=== PATIENT | male | born 1965 | race Caucasian/White ===

== ENCOUNTER 2019-01-11 16:34 | Inpatient (IN) | payer OTHER ==
[2019-01-11 17:34] LABS: ADD MAN DIFF? NO
[2019-01-11] MEDS: SODIUM CHLORIDE 0.9% 1L BAG IV* (17:38)
[2019-01-11] MEDS: PIPER-TAZO 3.375 GM IV (PMX) 100 ML IVPB (17:39)
[2019-01-11 17:42] LABS: BASOPHILS % 0.3 % (0.0-2.0); EOSINOPHILS % 0.1 % (0.0-7.0); HEMATOCRIT 45.5 % (42.0-52.0); HEMOGLOBIN 14.7 g/dl (14.0-18.0); LYMPHOCYTES # 1.3 10^3/ul (0.8-2.9); LYMPHOCYTES % 17.8 % (15.0-51.0); MEAN CORPUSCULAR HEMOGLOBIN 26.7 pg (29.0-33.0); MEAN CORPUSCULAR HGB CONC 32.3 g/dl (32.0-37.0); MEAN CORPUSCULAR VOLUME 82.7 fl (82.0-101.0); MEAN PLATELET VOLUME 10.4 fl (7.4-10.4); MONOCYTE # 0.6 10^3/ul (0.3-0.9); MONOCYTES % 7.7 % (0.0-11.0); NEUTROPHIL # 5.5 10^3/ul (1.6-7.5); NEUTROPHILS % 73.6 % (39.0-77.0); NUCLEATED RED BLOOD CELLS # 0.1 10^3/ul (0.0-0.0); NUCLEATED RED BLOOD CELLS% 0.7 /100WBC (0.0-0.0); PLATELET COUNT 351 10^3/UL (140-415); RED CELL DISTRIBUTION WIDTH 17.8 % (11.5-14.5)
[2019-01-11 17:42] LABS: WHITE BLOOD COUNT 7.5 10^3/ul (4.8-10.8)
[2019-01-11 18:02] LABS: INR 1.37; PT RATIO 1.3
[2019-01-11 18:03] LABS: ALANINE AMINOTRANSFERASE 30 IU/L (13-69); ALBUMIN 2.9 g/dl (3.3-4.9); ALKALINE PHOSPHATASE 190 IU/L (42-121); ANION GAP 12 (5-13); ASPARTATE AMINO TRANSFERASE 31 IU/L (15-46); BILIRUBIN,INDIRECT 0.6 mg/dl (0-1.1); BILIRUBIN,TOTAL 0.6 mg/dl (0.2-1.3); BLOOD UREA NITROGEN 20 mg/dl (7-20); CALCIUM 8.6 mg/dl (8.4-10.2); CARBON DIOXIDE 22 mmol/L (21-31); CHLORIDE 102 mmol/L (97-110); Estimated GFR > 60 mL/min (>60); GLUCOSE 238 mg/dl (70-220); PARTIAL THROMBOPLASTIN TIME 26.2 Sec (23.0-35.0); POTASSIUM 4.4 mmol/L (3.5-5.1); SODIUM 136 mmol/L (135-144); TOTAL PROTEIN 6.1 g/dl (6.1-8.1)
[2019-01-11 18:13] LABS: TROPONIN-I 0.045 ng/ml (0.000-0.120)
[2019-01-11] MEDS: VANCOMYCIN 1 GM (PMX) 250 ML IVPB (18:48)
[2019-01-11] MEDS ORDERED: ACETAMINOPHEN 325 MG TAB PO ×2 (19:00→19:30)
[2019-01-11] MEDS ORDERED: ONDANSETRON 4 MG INJ IV (19:00)
[2019-01-11] MEDS ORDERED: VANCOMYCIN IV PER PHARMACY XX (19:30)
[2019-01-11] MEDS ORDERED: NACL 0.9% 3 ML SYG IV (19:30)
[2019-01-11] MEDS ORDERED: GLUCOSE GEL 15 GRAM TUBE BUCCAL (20:00)
[2019-01-11] MEDS ORDERED: GLUCOSE GEL 15 GRAM TUBE PO ×2 (20:00)
[2019-01-11] MEDS ORDERED: GLUCAGON 1 MG INJ IM (20:00)
[2019-01-11] MEDS ORDERED: DEXTROSE 50% 50 ML SYRINGE IV ×2 (20:00)
[2019-01-11] MEDS: ATORVASTATIN 40 MG TAB PO (21:49)
[2019-01-11] MEDS: INSULIN ASPART [NOVOLOG] 3 ML PEN SC (21:59)
[2019-01-11] MEDS: FUROSEMIDE 40 MG INJ IV (22:08)
[2019-01-11 22:22] LABS: LACTIC ACID 1.9 mmol/L (0.5-2.0)
[2019-01-11 22:59] LABS: ADD UMIC YES; UR ASCORBIC ACID NEGATIVE (NEGATIVE); UR BACTERIA FEW /HPF (NONE SEEN); UR BILIRUBIN (Dip) NEGATIVE (NEGATIVE); UR BLOOD (Dip) NEGATIVE (NEGATIVE); UR CLARITY SLIGHTLY CLOUDY (CLEAR); UR COLOR YELLOW (YELLOW); UR GLUCOSE (Dip) 1+ mg/dL (NEGATIVE); UR KETONES (Dip) NEGATIVE (NEGATIVE); UR LEUKOCYTE ESTERASE (Dip) NEGATIVE Leu/ul (NEGATIVE); UR MUCUS FEW /HPF (NONE SEEN); UR NITRITE (Dip) NEGATIVE (NEGATIVE); UR RBC 1 /HPF (0-5); UR SPECIFIC GRAVITY (Dip) 1.013 (1.003-1.030); UR TOTAL PROTEIN (Dip) 2+ mg/dl (NEGATIVE); UR UROBILINOGEN (Dip) 2+ mg/dL (NEGATIVE); UR WBC 2 /HPF (0-5)
[2019-01-12] MEDS: LABETALOL HCL 20MG INJ IV (00:01)
[2019-01-12] MEDS: VANCOMYCIN HCL 2 GM in SOD CHLORIDE 0.9% 500 ML IVPB (01:22)
[2019-01-12] MEDS: ACCU-CHEK XX ×2 (02:00→23:34)
[2019-01-12] MEDS: PERMETHRIN 1% 59 ML TOP (03:25)
[2019-01-12] MEDS ORDERED: COLLAGENASE 5 GM (UD JAR) TOP (03:45)
[2019-01-12 04:00] LABS: AMPHETAMINE/METHAMPHETAMINE Negative (NEGATIVE); BARBITURATES Negative (NEGATIVE); BENZODIAZEPINES Negative (NEGATIVE); CANNABINOIDS Negative (NEGATIVE); COCAINE Negative (NEGATIVE); OPIATES Negative (NEGATIVE)
[2019-01-12 04:12] LABS: ADD MAN DIFF? NO
[2019-01-12 04:14] LABS: WHITE BLOOD COUNT 7.3 10^3/ul (4.8-10.8)
[2019-01-12 04:14] LABS: BASOPHILS % 0.3 % (0.0-2.0); EOSINOPHILS % 0.6 % (0.0-7.0); HEMATOCRIT 43.5 % (42.0-52.0); HEMOGLOBIN 13.8 g/dl (14.0-18.0); LYMPHOCYTES # 1.7 10^3/ul (0.8-2.9); LYMPHOCYTES % 23.3 % (15.0-51.0); MEAN CORPUSCULAR HEMOGLOBIN 26.6 pg (29.0-33.0); MEAN CORPUSCULAR HGB CONC 31.7 g/dl (32.0-37.0); MEAN CORPUSCULAR VOLUME 83.8 fl (82.0-101.0); MEAN PLATELET VOLUME 10.2 fl (7.4-10.4); MONOCYTE # 0.6 10^3/ul (0.3-0.9); MONOCYTES % 7.6 % (0.0-11.0); NEUTROPHIL # 4.9 10^3/ul (1.6-7.5); NEUTROPHILS % 67.8 % (39.0-77.0); PLATELET COUNT 300 10^3/UL (140-415); RED BLOOD COUNT 5.19 10^6/ul (4.70-6.10); RED CELL DISTRIBUTION WIDTH 16.7 % (11.5-14.5)
[2019-01-12 04:24] LABS: HEMOGLOBIN A1C 10.2 % (0-5.9)
[2019-01-12 04:33] LABS: ALANINE AMINOTRANSFERASE 34 IU/L (13-69); ALBUMIN 2.7 g/dl (3.3-4.9); ALKALINE PHOSPHATASE 170 IU/L (42-121); ANION GAP 8 (5-13); ASPARTATE AMINO TRANSFERASE 28 IU/L (15-46); BILIRUBIN,INDIRECT 0.6 mg/dl (0-1.1); BILIRUBIN,TOTAL 0.6 mg/dl (0.2-1.3); BLOOD UREA NITROGEN 20 mg/dl (7-20); CALCIUM 8.5 mg/dl (8.4-10.2); CARBON DIOXIDE 28 mmol/L (21-31); CHLORIDE 103 mmol/L (97-110); CHOLESTEROL 120 mg/dl (100-200); CREATININE 1.14 mg/dl (0.61-1.24); Estimated GFR > 60 mL/min (>60); GLUCOSE 154 mg/dl (70-220); HDL CHOLESTEROL 20 mg/dl (28-71); LDL CHOLESTEROL,CALCULATED 81 mg/dl; MAGNESIUM 1.9 mg/dl (1.7-2.5); PHOSPHORUS 4.2 mg/dl (2.5-4.9); POTASSIUM 3.8 mmol/L (3.5-5.1); SODIUM 139 mmol/L (135-144); TOTAL PROTEIN 5.7 g/dl (6.1-8.1); TRIGLYCERIDES 95 mg/dl (0-149)
[2019-01-12 04:43] LABS: ETHANOL < 10.0 mg/dl (0-0)
[2019-01-12] MEDS: FUROSEMIDE 40 MG INJ IV (06:56)
[2019-01-12] MEDS: INSULIN ASPART [NOVOLOG] 3 ML PEN SC ×4 (08:00→22:15)
[2019-01-12] MEDS: COLLAGENASE 5 GM (UD JAR) TOP (08:57)
[2019-01-12] MEDS: ASPIRIN 81 MG TAB PO (09:01)
[2019-01-12] MEDS: ENOXAPARIN 40 MG/0.4 ML SYG SC (09:02)
[2019-01-12] MEDS: VANCOMYCIN HCL 1.25 GM in SOD CHLORIDE 0.9% 250 ML IVPB (14:08)
[2019-01-12] MEDS ORDERED: FUROSEMIDE 40 MG INJ IV (18:00)
[2019-01-12] MEDS: SPIRONOLACTONE 25 MG TAB PO ×2 (18:00→22:15)
[2019-01-12] MEDS: FUROSEMIDE 20 MG INJ IV (18:02)
[2019-01-12] MEDS: ONDANSETRON 4 MG INJ IV (18:23)
[2019-01-12 18:51] LABS: TROPONIN-I 0.881 ng/ml (0.000-0.120)
[2019-01-12] MEDS ORDERED: METOPROLOL 5 MG INJ (19:06)
[2019-01-12] MEDS: AMIODARONE 150MG/D5W BOLUS 100 ML IV (19:56)
[2019-01-12] MEDS: AMIODARONE 900 MG in DEXTROSE 5% 482 ML IV (20:14)
[2019-01-12 21:25] LABS: TROPONIN-I 0.945 ng/ml (0.000-0.120)
[2019-01-12] MEDS: ADENOSINE 6 MG INJ IV (21:55)
[2019-01-12] MEDS: METOPROLOL 5 MG INJ IV (21:56)
[2019-01-12] MEDS: ATORVASTATIN 40 MG TAB PO (22:15)
[2019-01-12] MEDS: DIGOXIN 0.125 MG TAB PO (22:16)
[2019-01-13] MEDS: VANCOMYCIN HCL 1.25 GM in SOD CHLORIDE 0.9% 250 ML IVPB ×2 (01:46→13:00)
[2019-01-13] MEDS: AMIODARONE 900 MG in DEXTROSE 5% 482 ML IV (03:47)
[2019-01-13 06:45] LABS: CREATINE KINASE 25 IU/L (23-200)
[2019-01-13 06:49] LABS: ALANINE AMINOTRANSFERASE 40 IU/L (13-69); ALBUMIN 2.7 g/dl (3.3-4.9); ALBUMIN/GLOBULIN RATIO 0.84; ALKALINE PHOSPHATASE 178 IU/L (42-121); ANION GAP 11 (5-13); ASPARTATE AMINO TRANSFERASE 28 IU/L (15-46); BILIRUBIN,INDIRECT 0.6 mg/dl (0-1.1); BILIRUBIN,TOTAL 0.6 mg/dl (0.2-1.3); BLOOD UREA NITROGEN 22 mg/dl (7-20); CALCIUM 8.3 mg/dl (8.4-10.2); CARBON DIOXIDE 23 mmol/L (21-31); CHLORIDE 101 mmol/L (97-110); CHOL/HDL RATIO 5.8 RATIO; CHOLESTEROL 116 mg/dl (100-200); CREATININE 1.08 mg/dl (0.61-1.24); Estimated GFR > 60 mL/min (>60); GLUCOSE 178 mg/dl (70-220); HDL CHOLESTEROL 20 mg/dl (28-71); LDL CHOLESTEROL,CALCULATED 81 mg/dl; MAGNESIUM 1.8 mg/dl (1.7-2.5); POTASSIUM 4.1 mmol/L (3.5-5.1); SODIUM 135 mmol/L (135-144); TOTAL PROTEIN 5.9 g/dl (6.1-8.1); TRIGLYCERIDES 74 mg/dl (0-149)
[2019-01-13 06:55] LABS: B-TYPE NATRIURETIC PEPTIDE 14600 PG/ML (0-125)
[2019-01-13 06:56] LABS: CK INDEX 11.4
[2019-01-13 07:07] LABS: CK-MB 2.85 ng/ml (0.0-2.4); TROPONIN-I 0.654 ng/ml (0.000-0.120)
[2019-01-13] MEDS: FUROSEMIDE 20 MG INJ IV (07:08)
[2019-01-13 07:09] LABS: FREE T4 (FREE THYROXINE) 1.29 ng/dl (0.64-1.79)
[2019-01-13] MEDS: INSULIN ASPART [NOVOLOG] 3 ML PEN SC ×4 (07:46→20:52)
[2019-01-13] MEDS: LISINOPRIL 10 MG TAB PO (08:52)
[2019-01-13] MEDS: COLLAGENASE 5 GM (UD JAR) TOP (08:52)
[2019-01-13] MEDS: SPIRONOLACTONE 25 MG TAB PO ×2 (08:52)
[2019-01-13] MEDS: ASPIRIN 81 MG TAB PO (08:52)
[2019-01-13] MEDS: ENOXAPARIN 40 MG/0.4 ML SYG SC (09:13)
[2019-01-13] MEDS: DIGOXIN 0.125 MG TAB PO (12:12)
[2019-01-13] MEDS: FUROSEMIDE 40 MG INJ IV ×2 (12:12→20:34)
[2019-01-13] MEDS: POTASSIUM CHLORIDE (SR) 20 MEQ TAB PO (12:12)
[2019-01-13 12:51] LABS: VANCOMYCIN,TROUGH 18.4 ug/ml (10.0-20.0)
[2019-01-13] MEDS: MAGNESIUM SULFATE 3 GM in DEXTROSE 5% 100 ML IVPB (13:24)
[2019-01-13] MEDS: PERMETHRIN 1% 59 ML TOP (13:24)
[2019-01-13] MEDS: PERMETHRIN 5% 60 GM CR TOP (13:24)
[2019-01-13] MEDS ORDERED: ARTIFICIAL TEARS 15 ML OPH BOTH EYES (16:30)
[2019-01-13] MEDS: VANCOMYCIN 1 GM 250 ML IVPB (17:12)
[2019-01-13] MEDS: ATORVASTATIN 40 MG TAB PO (20:33)
[2019-01-13] MEDS: AMIODARONE 200 MG TAB PO (20:34)
[2019-01-14] MEDS: ACCU-CHEK XX (02:50)
[2019-01-14] MEDS: VANCOMYCIN 1 GM 250 ML IVPB (05:27)
[2019-01-14 06:30] LABS: ADD MAN DIFF? NO
[2019-01-14 06:51] LABS: WHITE BLOOD COUNT 6.8 10^3/ul (4.8-10.8)
[2019-01-14 06:51] LABS: BASOPHILS % 0.1 % (0.0-2.0); EOSINOPHILS # 0.1 10^3/ul (0.0-0.5); HEMOGLOBIN 13.7 g/dl (14.0-18.0); LYMPHOCYTES # 1.3 10^3/ul (0.8-2.9); LYMPHOCYTES % 19.3 % (15.0-51.0); MEAN CORPUSCULAR HEMOGLOBIN 27.2 pg (29.0-33.0); MEAN CORPUSCULAR HGB CONC 32.6 g/dl (32.0-37.0); MEAN CORPUSCULAR VOLUME 83.3 fl (82.0-101.0); MEAN PLATELET VOLUME 10.6 fl (7.4-10.4); MONOCYTE # 0.6 10^3/ul (0.3-0.9); MONOCYTES % 8.1 % (0.0-11.0); NEUTROPHIL # 4.9 10^3/ul (1.6-7.5); NEUTROPHILS % 71.1 % (39.0-77.0); PLATELET COUNT 260 10^3/UL (140-415); RED BLOOD COUNT 5.04 10^6/ul (4.70-6.10); RED CELL DISTRIBUTION WIDTH 16.8 % (11.5-14.5)
[2019-01-14 06:54] LABS: CREATINE KINASE 25 IU/L (23-200)
[2019-01-14 07:06] LABS: CK INDEX 5.4; CK-MB 1.36 ng/ml (0.0-2.4)
[2019-01-14 07:07] LABS: TROPONIN-I 0.382 ng/ml (0.000-0.120)
[2019-01-14 07:22] LABS: B-TYPE NATRIURETIC PEPTIDE 6780 PG/ML (0-125)
[2019-01-14] MEDS: INSULIN ASPART [NOVOLOG] 3 ML PEN SC ×4 (07:37→20:41)
[2019-01-14 07:48] LABS: ALANINE AMINOTRANSFERASE 33 IU/L (13-69); ALBUMIN 2.4 g/dl (3.3-4.9); ALBUMIN/GLOBULIN RATIO 0.85; ALKALINE PHOSPHATASE 140 IU/L (42-121); ANION GAP 7 (5-13); ASPARTATE AMINO TRANSFERASE 21 IU/L (15-46); BILIRUBIN,INDIRECT 0.7 mg/dl (0-1.1); BILIRUBIN,TOTAL 0.7 mg/dl (0.2-1.3); BLOOD UREA NITROGEN 23 mg/dl (7-20); CALCIUM 8.2 mg/dl (8.4-10.2); CARBON DIOXIDE 31 mmol/L (21-31); CHLORIDE 97 mmol/L (97-110); Estimated GFR > 60 mL/min (>60); GLUCOSE 139 mg/dl (70-220); MAGNESIUM 2.1 mg/dl (1.7-2.5); SODIUM 135 mmol/L (135-144); TOTAL PROTEIN 5.2 g/dl (6.1-8.1)
[2019-01-14] MEDS: FUROSEMIDE 40 MG INJ IV ×3 (08:42→20:25)
[2019-01-14] MEDS: COLLAGENASE 5 GM (UD JAR) TOP (08:42)
[2019-01-14] MEDS: ASPIRIN 81 MG TAB PO (08:42)
[2019-01-14] MEDS: LISINOPRIL 10 MG TAB PO (08:43)
[2019-01-14] MEDS: AMIODARONE 200 MG TAB PO ×2 (08:43→20:26)
[2019-01-14] MEDS: SPIRONOLACTONE 25 MG TAB PO ×2 (09:00→10:54)
[2019-01-14] MEDS: ENOXAPARIN 40 MG/0.4 ML SYG SC (09:07)
[2019-01-14] MEDS: DIGOXIN 0.125 MG TAB PO (12:48)
[2019-01-14] MEDS: CLINDAMYCIN 600 MG/D5W (PMX) 50 ML IVPB ×2 (17:04→23:38)
[2019-01-14] MEDS: ATORVASTATIN 40 MG TAB PO (20:27)
[2019-01-15] MEDS: ACCU-CHEK XX (01:33)
[2019-01-15 06:03] LABS: ADD MAN DIFF? NO
[2019-01-15 06:06] LABS: BASOPHILS % 0.3 % (0.0-2.0); EOSINOPHILS # 0.1 10^3/ul (0.0-0.5); HEMATOCRIT 44.6 % (42.0-52.0); HEMOGLOBIN 14.5 g/dl (14.0-18.0); LYMPHOCYTES # 1.3 10^3/ul (0.8-2.9); LYMPHOCYTES % 21.6 % (15.0-51.0); MEAN CORPUSCULAR HEMOGLOBIN 26.9 pg (29.0-33.0); MEAN CORPUSCULAR HGB CONC 32.5 g/dl (32.0-37.0); MEAN CORPUSCULAR VOLUME 82.7 fl (82.0-101.0); MEAN PLATELET VOLUME 10.7 fl (7.4-10.4); MONOCYTE # 0.5 10^3/ul (0.3-0.9); MONOCYTES % 8.5 % (0.0-11.0); NEUTROPHILS % 68.4 % (39.0-77.0); PLATELET COUNT 265 10^3/UL (140-415); RED BLOOD COUNT 5.39 10^6/ul (4.70-6.10); RED CELL DISTRIBUTION WIDTH 16.9 % (11.5-14.5)
[2019-01-15 06:06] LABS: WHITE BLOOD COUNT 5.9 10^3/ul (4.8-10.8)
[2019-01-15 06:31] LABS: INR 1.14; PROTIME 14.7 Sec (11.9-14.9); PT RATIO 1.1
[2019-01-15 06:41] LABS: CK-MB 0.85 ng/ml (0.0-2.4)
[2019-01-15 06:43] LABS: CREATINE KINASE < 20 IU/L (23-200); TROPONIN-I 0.229 ng/ml (0.000-0.120)
[2019-01-15 06:47] LABS: ALANINE AMINOTRANSFERASE 34 IU/L (13-69); ALBUMIN 2.6 g/dl (3.3-4.9); ALBUMIN/GLOBULIN RATIO 0.83; ALKALINE PHOSPHATASE 150 IU/L (42-121); ANION GAP 9 (5-13); ASPARTATE AMINO TRANSFERASE 28 IU/L (15-46); BILIRUBIN,INDIRECT 0.6 mg/dl (0-1.1); BILIRUBIN,TOTAL 0.6 mg/dl (0.2-1.3); BLOOD UREA NITROGEN 22 mg/dl (7-20); CARBON DIOXIDE 29 mmol/L (21-31); CHLORIDE 96 mmol/L (97-110); CREATININE 1.02 mg/dl (0.61-1.24); Estimated GFR > 60 mL/min (>60); GLUCOSE 106 mg/dl (70-220); MAGNESIUM 1.8 mg/dl (1.7-2.5); POTASSIUM 3.6 mmol/L (3.5-5.1); SODIUM 134 mmol/L (135-144); TOTAL PROTEIN 5.7 g/dl (6.1-8.1)
[2019-01-15 06:57] LABS: B-TYPE NATRIURETIC PEPTIDE 6270 PG/ML (0-125)
[2019-01-15] MEDS ORDERED: LIDOCAINE 1% (MDV) 20 ML INJ (07:52)
[2019-01-15] MEDS ORDERED: IODIXANOL LOCM 100 ML BTL (07:52)
[2019-01-15] MEDS ORDERED: MIDAZOLAM 1 MG/ML 2 ML INJ (07:53)
[2019-01-15] MEDS ORDERED: FENTAnyl 50 MCG/ML VIAL (07:53)
[2019-01-15] MEDS: CLINDAMYCIN 600 MG/D5W (PMX) 50 ML IVPB ×2 (08:00→16:55)
[2019-01-15] MEDS: INSULIN ASPART [NOVOLOG] 3 ML PEN SC ×4 (08:00→21:00)
[2019-01-15] MEDS: AMIODARONE 200 MG TAB PO ×3 (09:00→21:48)
[2019-01-15] MEDS: SPIRONOLACTONE 25 MG TAB PO ×3 (09:00→12:58)
[2019-01-15] MEDS: LISINOPRIL 10 MG TAB PO ×2 (09:00→13:00)
[2019-01-15] MEDS: ASPIRIN 81 MG TAB PO (09:00)
[2019-01-15] MEDS: ENOXAPARIN 40 MG/0.4 ML SYG SC (09:00)
[2019-01-15] MEDS: SOD CHLORIDE 0.9% 1,000 ML IV (12:00)
[2019-01-15] MEDS: COLLAGENASE 5 GM (UD JAR) TOP (12:57)
[2019-01-15] MEDS: DIGOXIN 0.125 MG TAB PO (12:57)
[2019-01-15] MEDS: POTASSIUM CHLORIDE (SR) 20 MEQ TAB PO (12:58)
[2019-01-15] MEDS: HYDROCODONE/APAP (5/325) TAB PO (12:58)
[2019-01-15] MEDS: MAGNESIUM SULFATE 3 GM in DEXTROSE 5% 100 ML IVPB (12:59)
[2019-01-15 14:06] LABS: HIV 1&2 ANTIBODY NEGATIVE (NEGATIVE)
[2019-01-15] MEDS: ALBUMIN HUMAN 25% 100 ML IV ×2 (15:11→21:47)
[2019-01-15] MEDS ORDERED: VANCOMYCIN IV PER PHARMACY XX (17:00)
[2019-01-15] MEDS: VANCOMYCIN 1 GM 250 ML IVPB (19:20)
[2019-01-15] MEDS: ATORVASTATIN 40 MG TAB PO (21:48)
[2019-01-15] MEDS: FUROSEMIDE 40 MG INJ IV (21:48)
[2019-01-16] MEDS: ACCU-CHEK XX (02:00)
[2019-01-16] MEDS: ALBUMIN HUMAN 25% 100 ML IV (05:00)
[2019-01-16] MEDS: VANCOMYCIN 1 GM 250 ML IVPB ×2 (06:08→18:41)
[2019-01-16 06:11] LABS: ADD MAN DIFF? NO
[2019-01-16 06:19] LABS: WHITE BLOOD COUNT 7.7 10^3/ul (4.8-10.8)
[2019-01-16 06:19] LABS: BASOPHILS % 0.3 % (0.0-2.0); EOSINOPHILS % 0.5 % (0.0-7.0); HEMATOCRIT 41.1 % (42.0-52.0); HEMOGLOBIN 13.5 g/dl (14.0-18.0); LYMPHOCYTES # 1.4 10^3/ul (0.8-2.9); LYMPHOCYTES % 18.4 % (15.0-51.0); MEAN CORPUSCULAR HEMOGLOBIN 26.7 pg (29.0-33.0); MEAN CORPUSCULAR HGB CONC 32.8 g/dl (32.0-37.0); MEAN CORPUSCULAR VOLUME 81.2 fl (82.0-101.0); MEAN PLATELET VOLUME 10.5 fl (7.4-10.4); MONOCYTE # 0.7 10^3/ul (0.3-0.9); MONOCYTES % 8.9 % (0.0-11.0); NEUTROPHIL # 5.5 10^3/ul (1.6-7.5); NEUTROPHILS % 71.5 % (39.0-77.0); PLATELET COUNT 251 10^3/UL (140-415); RED BLOOD COUNT 5.06 10^6/ul (4.70-6.10); RED CELL DISTRIBUTION WIDTH 16.8 % (11.5-14.5)
[2019-01-16 06:58] LABS: ALANINE AMINOTRANSFERASE 31 IU/L (13-69); ALBUMIN 2.9 g/dl (3.3-4.9); ALBUMIN/GLOBULIN RATIO 0.93; ALKALINE PHOSPHATASE 149 IU/L (42-121); ANION GAP 10 (5-13); ASPARTATE AMINO TRANSFERASE 24 IU/L (15-46); BILIRUBIN,INDIRECT 0.6 mg/dl (0-1.1); BILIRUBIN,TOTAL 0.6 mg/dl (0.2-1.3); BLOOD UREA NITROGEN 22 mg/dl (7-20); CALCIUM 8.3 mg/dl (8.4-10.2); CARBON DIOXIDE 27 mmol/L (21-31); CHLORIDE 97 mmol/L (97-110); CREATININE 0.88 mg/dl (0.61-1.24); Estimated GFR > 60 mL/min (>60); GLUCOSE 164 mg/dl (70-220); SODIUM 134 mmol/L (135-144)
[2019-01-16 07:00] LABS: DIGOXIN 0.7 ng/ml (1.0-2.0)
[2019-01-16 07:00] LABS: B-TYPE NATRIURETIC PEPTIDE 10500 PG/ML (0-125)
[2019-01-16] MEDS: INSULIN ASPART [NOVOLOG] 3 ML PEN SC ×4 (08:00→20:52)
[2019-01-16] MEDS: COLLAGENASE 5 GM (UD JAR) TOP (09:36)
[2019-01-16] MEDS: ASPIRIN 81 MG TAB PO (09:36)
[2019-01-16] MEDS: FUROSEMIDE 40 MG INJ IV ×3 (09:36→18:41)
[2019-01-16] MEDS: AMIODARONE 200 MG TAB PO ×2 (09:37→20:44)
[2019-01-16] MEDS: HYDROCODONE/APAP (5/325) TAB PO (09:37)
[2019-01-16] MEDS: SPIRONOLACTONE 25 MG TAB PO (09:37)
[2019-01-16] MEDS: ENOXAPARIN 40 MG/0.4 ML SYG SC (09:47)
[2019-01-16] MEDS: DIGOXIN 0.125 MG TAB PO (13:52)
[2019-01-16] MEDS: ATORVASTATIN 40 MG TAB PO (20:45)
[2019-01-17] MEDS: ACCU-CHEK XX (02:00)
[2019-01-17] MEDS: VANCOMYCIN 1 GM 250 ML IVPB ×2 (06:04→18:19)
[2019-01-17 06:07] LABS: ALANINE AMINOTRANSFERASE 33 IU/L (13-69); ALBUMIN 2.7 g/dl (3.3-4.9); ALBUMIN/GLOBULIN RATIO 0.96; ALKALINE PHOSPHATASE 131 IU/L (42-121); ANION GAP 7 (5-13); ASPARTATE AMINO TRANSFERASE 24 IU/L (15-46); BILIRUBIN,INDIRECT 0.7 mg/dl (0-1.1); BILIRUBIN,TOTAL 0.7 mg/dl (0.2-1.3); BLOOD UREA NITROGEN 21 mg/dl (7-20); CALCIUM 8.2 mg/dl (8.4-10.2); CARBON DIOXIDE 29 mmol/L (21-31); CHLORIDE 99 mmol/L (97-110); CREATININE 0.91 mg/dl (0.61-1.24); Estimated GFR > 60 mL/min (>60); GLUCOSE 123 mg/dl (70-220); MAGNESIUM 1.8 mg/dl (1.7-2.5); POTASSIUM 3.9 mmol/L (3.5-5.1); SODIUM 135 mmol/L (135-144); TOTAL PROTEIN 5.5 g/dl (6.1-8.1)
[2019-01-17 06:41] LABS: DIGOXIN 0.8 ng/ml (1.0-2.0)
[2019-01-17] MEDS: INSULIN ASPART [NOVOLOG] 3 ML PEN SC ×4 (08:00→20:48)
[2019-01-17] MEDS: COLLAGENASE 5 GM (UD JAR) TOP (09:14)
[2019-01-17] MEDS: HYDROCODONE/APAP (5/325) TAB PO (09:15)
[2019-01-17] MEDS: SPIRONOLACTONE 25 MG TAB PO (09:15)
[2019-01-17] MEDS: ASPIRIN 81 MG TAB PO (09:16)
[2019-01-17] MEDS: ENOXAPARIN 40 MG/0.4 ML SYG SC (09:21)
[2019-01-17] MEDS: LISINOPRIL 10 MG TAB PO (09:26)
[2019-01-17] MEDS: FUROSEMIDE 40 MG INJ IV ×3 (09:26→18:19)
[2019-01-17] MEDS: DIGOXIN 0.125 MG TAB PO (14:31)
[2019-01-17 17:04] LABS: VANCOMYCIN,TROUGH 13.4 ug/ml (10.0-20.0)
[2019-01-17] MEDS: ATORVASTATIN 40 MG TAB PO (20:47)
[2019-01-18] MEDS: ACCU-CHEK XX (01:29)
[2019-01-18] MEDS: BUMETANIDE 1 MG TAB PO (05:15)
[2019-01-18] MEDS: VANCOMYCIN 1 GM 250 ML IVPB (05:18)
[2019-01-18 05:58] LABS: ADD MAN DIFF? NO
[2019-01-18 06:06] LABS: BASOPHILS % 0.5 % (0.0-2.0); EOSINOPHILS # 0.1 10^3/ul (0.0-0.5); EOSINOPHILS % 1.8 % (0.0-7.0); HEMATOCRIT 40.2 % (42.0-52.0); HEMOGLOBIN 12.8 g/dl (14.0-18.0); LYMPHOCYTES # 1.5 10^3/ul (0.8-2.9); LYMPHOCYTES % 26.2 % (15.0-51.0); MEAN CORPUSCULAR HEMOGLOBIN 26.3 pg (29.0-33.0); MEAN CORPUSCULAR HGB CONC 31.8 g/dl (32.0-37.0); MEAN CORPUSCULAR VOLUME 82.5 fl (82.0-101.0); MEAN PLATELET VOLUME 10.8 fl (7.4-10.4); MONOCYTE # 0.5 10^3/ul (0.3-0.9); MONOCYTES % 8.9 % (0.0-11.0); NEUTROPHIL # 3.5 10^3/ul (1.6-7.5); NEUTROPHILS % 62.2 % (39.0-77.0); PLATELET COUNT 252 10^3/UL (140-415); RED BLOOD COUNT 4.87 10^6/ul (4.70-6.10); RED CELL DISTRIBUTION WIDTH 16.2 % (11.5-14.5)
[2019-01-18 06:06] LABS: WHITE BLOOD COUNT 5.6 10^3/ul (4.8-10.8)
[2019-01-18 06:23] LABS: DIGOXIN 0.7 ng/ml (1.0-2.0)
[2019-01-18 06:31] LABS: ALANINE AMINOTRANSFERASE 34 IU/L (13-69); ALBUMIN 2.6 g/dl (3.3-4.9); ALBUMIN/GLOBULIN RATIO 0.89; ALKALINE PHOSPHATASE 114 IU/L (42-121); ANION GAP 5 (5-13); ASPARTATE AMINO TRANSFERASE 24 IU/L (15-46); BILIRUBIN,INDIRECT 0.7 mg/dl (0-1.1); BILIRUBIN,TOTAL 0.7 mg/dl (0.2-1.3); BLOOD UREA NITROGEN 19 mg/dl (7-20); CALCIUM 8.1 mg/dl (8.4-10.2); CARBON DIOXIDE 34 mmol/L (21-31); CHLORIDE 93 mmol/L (97-110); CREATININE 0.93 mg/dl (0.61-1.24); Estimated GFR > 60 mL/min (>60); GLUCOSE 121 mg/dl (70-220); MAGNESIUM 1.7 mg/dl (1.7-2.5); POTASSIUM 3.5 mmol/L (3.5-5.1); SODIUM 132 mmol/L (135-144); TOTAL PROTEIN 5.5 g/dl (6.1-8.1)
[2019-01-18 06:32] LABS: B-TYPE NATRIURETIC PEPTIDE 9670 PG/ML (0-125)
[2019-01-18] MEDS: INSULIN ASPART [NOVOLOG] 3 ML PEN SC ×2 (08:13→12:25)
[2019-01-18] MEDS: SPIRONOLACTONE 25 MG TAB PO (08:22)
[2019-01-18] MEDS: COLLAGENASE 5 GM (UD JAR) TOP (08:22)
[2019-01-18] MEDS: LISINOPRIL 10 MG TAB PO (08:23)
[2019-01-18] MEDS: AMIODARONE 200 MG TAB PO (08:23)
[2019-01-18] MEDS: ASPIRIN 81 MG TAB PO (08:23)
[2019-01-18] MEDS: ENOXAPARIN 40 MG/0.4 ML SYG SC (08:38)
[2019-01-18] MEDS: DIGOXIN 0.125 MG TAB PO (12:47)
[2019-01-18] MEDS ORDERED: CEFAZOLIN 1 GM/50 ML (PMX) 50 ML IVPB (18:00)
== END 2019-01-18 14:28 | DRG 280 ==
LOC: PP2 18:54 → E/R 16:34 → PP2 01-12 03:00 → 6WM 01-12 19:23 → ICU 01-15 08:00 → 6WM 01-15 20:05
PROVIDERS: Internal Medicine
PROC: 4A023N7 Measurement of Cardiac Sampling and Pressure, Left Heart, Percutaneous Approach (ICD-10-PCS; principal; 2019-01-15 08:00)
PROC: B211YZZ Fluoroscopy of Multiple Coronary Arteries using Other Contrast (ICD-10-PCS; 2019-01-15 08:00)
DX: I11.0 Hypertensive heart disease with heart failure (principal); I21.A1 Myocardial infarction type 2; I49.01 Ventricular fibrillation; J96.00 Acute respiratory failure, unspecified whether with hypoxia or hypercapnia; J18.9 Pneumonia, unspecified organism; I69.951 Hemiplegia and hemiparesis following unspecified cerebrovascular disease affecting right dominant side; L03.116 Cellulitis of left lower limb; I47.1 Supraventricular tachycardia; L03.115 Cellulitis of right lower limb; E11.65 Type 2 diabetes mellitus with hyperglycemia; I50.23 Acute on chronic systolic (congestive) heart failure; I25.5 Ischemic cardiomyopathy; E78.5 Hyperlipidemia, unspecified; B85.2 Pediculosis, unspecified; B95.61 Methicillin susceptible Staphylococcus aureus infection as the cause of diseases classified elsewhere; E66.9 Obesity, unspecified; Z68.35 Body mass index [BMI] 35.0-35.9, adult; Z79.4 Long term (current) use of insulin; Z59.0 Homelessness
CPT/HCPCS: 36415; 71045; 80053; 80061; 80162; 80202; 80307; 81001; 82550; 82553; 82962; 83036; 83605; 83735; 83880; 84100; 84439; 84443; 84484; 85025; 85610; 85730; 86703; 87040; 87070; 87081; 87086; 93005; 93306; 93460; 96365; 96375; 99291-25